=== PATIENT | female | born 2000 | race African-American/Black ===

== ENCOUNTER 2020-09-17 12:37 | Emergency (ER) | payer MEDICAID ==
[~2020-09-17] VITALS: Ht 162.6 cm; Wt 45.4 kg
[2020-09-17 16:45] VITALS: BP 101/56
== END 2020-09-17 18:40 | disposition left against medical advice (07) ==
LOC: ER 12:37
DX: R11.2 Nausea with vomiting, unspecified (principal); F41.9 Anxiety disorder, unspecified; Z53.21 Procedure and treatment not carried out due to patient leaving prior to being seen by health care provider
CPT/HCPCS: 71046

== ENCOUNTER → 2021-04-05 | Emergency (ER) | payer MEDICAID ==
[~2021-04-05] VITALS: Ht 165.1 cm; Wt 49.9 kg
[2021-04-05 09:20] VITALS: BP 113/99
== END | disposition home or self-care (01) ==
LOC: EDUNIT# 09:07 → ER 09:08 → EDBD 09:08
DX: M79.18 Myalgia, other site (principal)

== ENCOUNTER 2021-10-29 23:46 | Emergency (ER) | payer MEDICAID ==
[~2021-10-29] VITALS: Ht 160 cm; Wt 44.5 kg
[2021-10-30 00:14] VITALS: BP 99/62
[2021-10-30 01:29] LABS: Urine Bacteria NONE SEEN /hpf (None Seen); Urine Blood Negative /uL (Negative); Urine Mucus FEW (None Seen); Urine Specific Gravity 1.031 (1.001-1.035); Urine WBC 5 /hpf (0 - 5)
== END 2021-10-30 03:19 | disposition left against medical advice (07) ==
LOC: ER 23:46
DX: R07.89 Other chest pain (principal); R11.0 Nausea; Z53.21 Procedure and treatment not carried out due to patient leaving prior to being seen by health care provider
CPT/HCPCS: 81001; 81025; 93005

== ENCOUNTER 2022-01-01 22:59 | Emergency (ER) | payer MEDICAID ==
[~2022-01-01] VITALS: Ht 165.1 cm; Wt 50.3 kg
[2022-01-01 22:59] VITALS: BP 112/67
== END 2022-01-02 03:46 | disposition home or self-care (01) ==
LOC: ER 23:13
DX: H92.02 Otalgia, left ear (principal)

== ENCOUNTER 2022-04-30 12:18 | Observation (INO) | payer MEDICAID ==
[~2022-04-30] VITALS: Ht 170.2 cm; Wt 72.7 kg
[2022-04-30 12:25] VITALS: BP 110/77
== END 2022-04-30 15:10 | disposition home or self-care (01) ==
LOC: EDBD 12:18 → ER 12:18 → UNDOADMOB 12:46 → LDRP 12:46 → UNDODISOB 15:10
PROVIDERS: ADMIT Obstetrics & Gynecology; ATTEND Obstetrics & Gynecology
DX: O36.8130 Decreased fetal movements, third trimester, not applicable or unspecified (principal); O36.5930 Maternal care for other known or suspected poor fetal growth, third trimester, not applicable or unspecified; Z3A.34 34 weeks gestation of pregnancy
CPT/HCPCS: 59025; 76818; 81002; 94760; 99284; G0378

== ENCOUNTER 2022-12-17 15:07 | Emergency (ER) | payer MEDICAID ==
[~2022-12-17] VITALS: Ht 165.1 cm; Wt 45.4 kg
[2022-12-17 15:55] VITALS: BP 116/63; PULSE 83; RESP 16; TEMP 98.8; O2SAT 96
[2022-12-17] MEDS ORDERED: NAPR-746 PO (16:01)
[2022-12-17] MEDS ORDERED: TRIA0.02 TOP (16:01)
== END 2022-12-17 16:10 | disposition home or self-care (01) ==
LOC: ER 15:07
DX: S70.02XA Contusion of left hip, initial encounter (principal); L20.9 Atopic dermatitis, unspecified; W01.0XXA Fall on same level from slipping, tripping and stumbling without subsequent striking against object, initial encounter; Y93.89 Activity, other specified; Y92.89 Other specified places as the place of occurrence of the external cause; Y99.8 Other external cause status

== ENCOUNTER 2024-10-20 15:35 | Emergency (ER) | payer MEDICAID ==
[~2024-10-20] VITALS: Ht 165.1 cm; Wt 46.0 kg
[~2024-10-20 15:35] MED LIST: NAPR-746 PO; TRIA0.02 TOP
[2024-10-20 15:44] VITALS: BP 110/66; PULSE 91; RESP 17; TEMP 97.9; O2SAT 98
--- NOTE | 2024-10-20 15:46 | ED.PDOC ---
History of Present Illness(SKN HPI Comments A 24 YEAR OLD FEMALE PRESENTS TO THE ED WITH COMPLAINT OF VAGINAL RASH. PATIENT STATES SHE HAS HAD A SKIN TAG ON HER VAGINAL/PELVIC REGION FOR THE PAST 1 MONTH. PATIENT DENIES VAGINAL DISCHARGE, DYSURIA, HEMATURIA, FEVER, CHILLS, SHORTNESS OF BREATH, CHEST PAIN, ABDOMINAL PAIN, NAUSEA, VOMITING, HEADACHE, OR OTHER COMPLAINTS. NO OTHER SYMPTOMS OR MODIFYING FACTORS AT THIS TIME. PATIENT IS ALERT, ORIENTED X 4, AND HAS STEADY GAIT. Chief Complaint: Rash Time Seen by MD: 15:37 Primary Care Provider: [facility] History of Present Illness: Nurses Notes, Medications, Allergies Allergies: Coded Allergies: NO KNOWN ALLERGIES (Unverified , 07/05/14) Home Meds Active Scripts Naproxen (Naproxen) 500 Mg Tab, 500 MG PO BID, #30 TAB Prov:CANDY RAMAN 12/17/22 Triamcinolone Acetonide (Triamcinolone Acetonide) 0.025 % Cre, 1 APPLIC TOP BID, #30 GRAMS Prov:CANDY RAMAN 12/17/22 Information Source: Patient Mode of Arrival: Ambulatory Severity: Mild Timing: Weeks Duration: Since onset Prehospital treatment: None Location: Pelvis (VAGINAL REGION) Mechanism: Spontaneous Onset Developed: Other (SKIN TAG OF VAGINAL REGION) Occurence: Indoors Object: None Condition of Object: None Retained Foreign Body: No Wound Type: None Immunization Status of Animal: NA Tetanus: Unknown History of: None Associated Signs and Symptoms: Redness Past Medical History PAST MEDICAL HISTORY: Denies Surgical History: Denies all surgeries PRODUCTION SUPPORT CONSULTANT History: Denies all PRODUCTION SUPPORT CONSULTANT Hx Family History Family History: Reviewed,noncontributory to illness Social History Smoker: Non-Smoker Alcohol: Denies ETOH Use Drugs: Denies Drug Use Lives In: Home Constitutional: denies: chills, diaphoresis, fatigue, fever, malaise, sweats, weakness, others EENTM: denies: blurred vision, double vision, ear bleeding, ear discharge, ear drainage, ear pain, ear ringing, eye pain, eye redness, hearing loss, mouth pain, mouth swelling, nasal discharge, nose bleeding, nose congestion, nose pain, photophobia, tearing, throat pain, throat swelling, voice changes, others Respiratory: denies: cough, hemoptysis, orthopnea, SOB at rest, shortness of breath, SOB with excertion, stridor, wheezing, others Cardiovascular: denies: chest pain, dizzy spells, diaphoresis, Dyspnea on exertion, edema, irregular heart beat, left arm pain, lightheadedness, palpitations, PND, syncope, others Gastrointestinal: denies: abdomen distended, abdominal pain, blood streaked bowels, constipated, diarrhea, dysphagia, difficulty swallowing, hematemesis, melena, nausea, poor appetite, poor fluid intake, rectal bleeding, rectal pain, vomiting, others Genitourinary: denies: abnormal vagina bleeding, burning, dyspareunia, dysuria, flank pain, frequency, hematuria, incontinence, pain, , vagina discharge, urgency, others Neurological: denies: dizziness, fainting, headache, left sided numbness, left sided weakness, numbness, paresthesia, pre-existing deficit, right sided numbness, right sided weakness, seizure, speech problems, tingling, tremors, weakness, others Musculoskeletal: denies: back pain, gout, joint pain, joint swelling, muscle pain, muscle stiffness, neck pain, others Integumetry: reports: others (SKIN TAG OF VAGINAL REGION); denies: bruises, change in color, change in hair/nails, dryness, laceration, lesions, lumps, rash, wounds Allergic/Immunocompromised: denies: Difficulty Healing, Frequent Infections, Hives, Itching, others Hematologic/Lymphatic: denies: anemia, blood clots, easy bleeding, easy bruising, swollen glands, others Endocrine: denies: excessive hunger, excessive sweating, excessive thirst, excessive urination, flushing, intolerance to cold, intolerance to heat, unexplained weight gain, unexplained weight loss, others Psychiatric: denies: anxiety, bipolar disorder, depression, hopeless, panic disorder, schizophrenia, sleepless, suicidal, others All Other Systems: Reviewed and Negative Physical Exam General Appearance: No Apparent Distress, Normal HEENT: Normal ENT Inspection, PERRL/EOMI, Pharynx Normal, TMs Normal Neck: Full Range of Motion, Non-Tender, Normal, Normal Inspection Respiratory: Chest Non-Tender, Lungs Clear, No Accessory Muscle Use, No Respiratory Distress, Normal Breath Sounds Cardiovascular: No Edema, No JVD, No Murmur, No Gallop, Normal Peripheral Pulses, Regular Rate/Rhythm Breast Exam: Deferred Gastrointestinal: No Organomegaly, Non Tender, No Pulsatile Mass, Normal Bowel Sounds, Soft Genitalia: Other (A FEW SMALL SKIN TAGES ON ANTERIOR UPPER BUTTOCKS, NO TENDERNESS AND SWELLING, NO VAGINAL DISCHARGE AND BLEEDING. ) Pelvic: Normal External Exam Rectal: Deferred Extremities: No calf tenderness, Normal capillary refill, Normal inspection, Normal range of motion, Non-tender, No pedal edema Musculoskeletal : Apperance: Normal Neurologic: Alert, gang knife fish chopper II-XII nml as Tested, No Motor Deficits, Normal Affect, Normal Mood, No Sensory Deficits Cerebellar Function: Normal Reflexes: Normal Skin: Dry, Normal Color, Warm, Other (A FEW TINY SKIN TAGS ON BILATERAL ANTERIOR UPPER BUTTOCKS. ) Peripheral Pulses: 2+ carotid (R), 2+ carotid (L) Lymphatic: No Adenopathy Was a procedure done? Was a procedure done?: No Differential Diagnosis (INTG) Differential Diagnosis: N/A Differential Diagnosis: Atopic dermatitis, Contact Dermatitis, Herpes Zoster/Simplex, Tinea, Urticaria, Other (SKIN TAG) Differential Diagnosis: N/A Abscess: N/A Differential Diagnosis: N/A X-Ray, Labs, Meds, VS Vital Signs Date Time Temp Pulse Resp B/P (MAP) Pulse Ox O2 Delivery O2 Flow Rate FiO2 10/20/24 15:44 97.9 91 17 110/66 (81) 98 97.9 X-Ray, Labs, Meds, VS Comment EXTERNAL MEDICAL RECORDS REVIEWED: [NONE] INDEPENDENT HISTORIANS: [NONE] SOCIAL DETERMINANTS OF HEALTH: [NONE] LABS ORDERED: NONE REVIEWED AND INTERPRETED RESULTS: NONE IMAGING ORDERED: NONE TREATMENTS ORDERED: NONE PROCEDURES PERFORMED: NONE CRITICAL CARE TIME: NONE I HAVE DISCUSSED THE PATIENT WITH THE ATTENDING PHYSICIAN DR. TOUSSAINT AND HE AGREES WITH THE PATIENT'S PLAN OF CARE AND DISPOSITION. BASED ON HISTORY OF PRESENT ILLNESS, AND PHYSICAL EXAM, PATIENT WILL BE DISCHARGED HOME. SHARED DECISION MAKING: PATIENT INSTRUCTED TO FOLLOW UP WITH PRIMARY CARE PROVIDER IN 1-2 DAYS FOR RE-EVALUATION OF SYMPTOMS. PATIENT VERBALIZES UNDERSTANDING TO RETURN TO ED FOR NEW OR WORSENING SYMPTOMS OR IF FOLLOW UP WITH PCP CANNOT BE OBTAINED. PATIENT FEELS COMFORTABLE GOING HOME AT THIS TIME. ALL QUESTIONS ADDRESSED AT TIME OF DISCHARGE. Time of 1ST Reevaluation: 16:32 Reevaluation 1ST: Improved Patient Education/Counseling: Diagnosis, Treatment, Need For Follow Up Family Education/Counseling: Diagnosis, Treatment, Need For Follow Up Medical Screening: No EMC Exist At This Time SEPSIS Sepsis Screen Vital Signs Date Time Temp Pulse Resp B/P (MAP) Pulse Ox O2 Delivery O2 Flow Rate FiO2 10/20/24 15:44 97.9 91 17 110/66 (81) 98 97.9 Departure 1 Departure Time of Disposition: 16:32 Impression: Primary Impression: Skin tag Disposition: HOME / SELF CARE / HOMELESS Condition: Stable Additional Instructions: FOLLOW-UP WITH PCP IN 1 TO 2 DAYS. RETURN TO ED FOR ANY NEW OR WORSENING SYMPTOMS. Discharged With: Self Critical Care Note Critical Care Time?: No Stability Stability form required: No I personally scribed for CANDY RAMAN ([email or web address]) on 10/20/24 at 15:46. Electronically submitted by Jatin Narayan ([employer] ([employer])). I personally scribed for CANDY RAMAN ([email or web address]) on 10/20/24 at 16:19. Electronically submitted by Jatin Narayan ([employer] Content Database (RCDb)). I personally scribed for CANDY RAMAN ([email or web address]) on 10/20/24 at 16:22. Electronically submitted by Jatin Narayan ([email or web address]). CANDY RAMAN Oct 20, 2024 15:46
== END 2024-10-20 16:27 | disposition home or self-care (01) ==
LOC: ER 15:35
DX: L91.8 Other hypertrophic disorders of the skin (principal)

== ENCOUNTER 2025-01-12 10:42 | Emergency (ER) | payer MEDICAID ==
[~2025-01-12] VITALS: Ht 165.1 cm; Wt 46.9 kg
--- NOTE | 2025-01-12 11:25 | ED.PDOC ---
History of Present Illness(SKN HPI Comments A 24 YEAR OLD FEMALE PRESENTS TO THE ED WITH LEFT SIDED BREAST PAIN OF ONE MONTH DURATION. PAIN WAS INITIALLY INTERMITTENT BUT HAS BEEN CONSTANT FOR THE PAST TWO DAYS. IT IS ASSOCIATED WITH A NEWLY NOTICED LUMP IN THE INNER BREAST THAT APPEARED YESTERDAY, SUBSEQUENTLY RESOLVED, AND RECURRED TODAY. PATIENT HAS PAIN ON PALPATION. THERE IS NO PUS OR DRAINAGE FROM NIPPLE AREA. PATIENT MENTIONS SHE IS CURRENTLY BREAST FEEDING. PATIENT DENIES FEVER, CHILLS, SHORTNESS OF BREATH, CHEST PAIN, ABDOMINAL PAIN, NAUSEA, VOMITING, HEADACHE, OR OTHER COMPLAINTS. NO OTHER SYMPTOMS OR MODIFYING FACTORS AT THIS TIME. PATIENT IS ALERT, ORIENTED X 4, AND HAS STEADY GAIT. Chief Complaint: Breast pain Time Seen by MD: 11:20 Primary Care Provider: [facility] History of Present Illness: Nurses Notes, Medications, Allergies Allergies: Coded Allergies: NO KNOWN ALLERGIES (Unverified , 07/05/14) Home Meds Active Scripts Naproxen (Naproxen) 500 Mg Tab, 500 MG PO BID, #30 TAB Prov:CANDY RAMAN 12/17/22 Triamcinolone Acetonide (Triamcinolone Acetonide) 0.025 % Cre, 1 APPLIC TOP BID, #30 GRAMS Prov:CANDY RAMAN 12/17/22 Information Source: Patient Mode of Arrival: Ambulatory Severity: Mild, Moderate Timing: Days, Months Duration: Since onset, Days Prehospital treatment: None Location: Other (LEFT INNER BREAST ) Mechanism: Spontaneous Onset Object: None Condition of Object: None Wound Type: None Tetanus: UTD History of: None Associated Signs and Symptoms: Redness, Swelling (LEFT BREAST ), Pain (LEFT BREAST ) Past Medical History PAST MEDICAL HISTORY: Denies Surgical History: Denies all surgeries CHIP FRIER History: Denies all CHIP FRIER Hx Family History Family History: Reviewed,noncontributory to illness Social History Smoker: Non-Smoker Alcohol: Denies ETOH Use Drugs: Denies Drug Use Lives In: Home Constitutional: denies: chills, diaphoresis, fatigue, fever, malaise, sweats, weakness, others EENTM: denies: blurred vision, double vision, ear bleeding, ear discharge, ear drainage, ear pain, ear ringing, eye pain, eye redness, hearing loss, mouth pain, mouth swelling, nasal discharge, nose bleeding, nose congestion, nose pain, photophobia, tearing, throat pain, throat swelling, voice changes, others Respiratory: denies: cough, hemoptysis, orthopnea, SOB at rest, shortness of breath, SOB with excertion, stridor, wheezing, others Cardiovascular: denies: chest pain, dizzy spells, diaphoresis, Dyspnea on exertion, edema, irregular heart beat, left arm pain, lightheadedness, palpitat ions, PND, syncope, others Gastrointestinal: denies: abdomen distended, abdominal pain, blood streaked bow els, constipated, diarrhea, dysphagia, difficulty swallowing, hematemesis, melena, nausea, poor appetite, poor fluid intake, rectal bleeding, rectal pain, vomiting, others Genitourinary: denies: abnormal vagina bleeding, burning, dyspareunia, dysuria, flank pain, frequency, hematuria, incontinence, pain, , vagina discharge, urgency, others Neurological: denies: dizziness, fainting, headache, left sided numbness, left sided weakness, numbness, paresthesia, pre-existing deficit, right sided numbness, right sided weakness, seizure, speech problems, tingling, tremors, weakness, others Musculoskeletal: denies: back pain, gout, joint pain, joint swelling, muscle pain, muscle stiffness, neck pain, others Integumetry: reports: lumps (LEFT INNER BREAST ), others (LEFT BREAST SWELLING WITH PAIN ); denies: bruises, change in color, change in hair/nails, dryness, laceration, lesions, rash, wounds Allergic/Immunocompromised: denies: Difficulty Healing, Frequent Infections, Hives, Itching, others Hematologic/Lymphatic: denies: anemia, blood clots, easy bleeding, easy bruising, swollen glands, others Endocrine: denies: excessive hunger, excessive sweating, excessive thirst, excessive urination, flushing, intolerance to cold, intolerance to heat, unexplained weight gain, unexplained weight loss, others Psychiatric: denies: anxiety, bipolar disorder, depression, hopeless, panic disorder, schizophrenia, sleepless, suicidal, others All Other Systems: Reviewed and Negative Physical Exam General Appearance: No Apparent Distress, Normal HEENT: Normal ENT Inspection, PERRL/EOMI, Pharynx Normal, TMs Normal Neck: Full Range of Motion, Non-Tender, Normal, Normal Inspection Respiratory: Chest Non-Tender, Lungs Clear, No Accessory Muscle Use, No Respiratory Distress, Normal Breath Sounds Cardiovascular: No Edema, No JVD, No Murmur, No Gallop, Normal Peripheral Pulses, Regular Rate/Rhythm Breast Exam: (L) Tenderness (WITH LOCALIZED RED LUMP ON LEFT MIDDLE BREAST WALL, MASTITIS?? ) Gastrointestinal: No Organomegaly, Non Tender, No Pulsatile Mass, Normal Bowel Sounds, Soft Genitalia: Deferred Pelvic: Deferred Rectal: Deferred Extremities: No calf tenderness, Normal capillary refill, Normal inspection, Normal range of motion, Non-tender, No pedal edema Musculoskeletal : Apperance: Normal Neurologic: Alert, digital music instructor II-XII nml as Tested, No Motor Deficits, Normal Affect, Normal Mood, No Sensory Deficits Cerebellar Function: Normal Reflexes: Normal Skin: Dry, Normal Color, Warm, Other (A LUMP WITH MILD LOCALIZED REDNESS AND HARDNESS ON LEFT INNER MIDDLE BREAST WALL, NO OLPEN WOUND SEEN. ) Peripheral Pulses: 2+ carotid (R), 2+ carotid (L) Lymphatic: No Adenopathy Was a procedure done? Was a procedure done?: No Differential Diagnosis (INTG) Differential Diagnosis: Other ( FIBROCYSTIC BREAST CHANGES, BREAST CYST, AND FIBROADENOMA, MASTITIS ) X-Ray, Labs, Meds, VS Vital Signs Date Time Temp Pulse Resp B/P (MAP) Pulse Ox O2 Delivery O2 Flow Rate FiO2 01/12/25 11:44 68 18 97 Room Air 01/12/25 11:44 98.7 68 18 115/76 (89) 97 98.7 01/12/25 10:46 97.9 109 16 108/73 98 97.9 PATIENT: DEMAR MONSIVAISACCT: [id number]: [id number] : 2000 LOC: ER ROOM / BED: / AGE / SEX: 24 / F ADM STATUS: REG ER SERVICE 1122 ORDERING PHYSICIAN: CANDY RAMAN PROCEDURE(s): LBRST - L BREAST ULTRASOUND REASON: A LUMP ON LEFT INNER BREAST WITH PAIN AND MILD REDNESS ORDER NUMBER(s): [id number], ACCESSION NUMBER(s): [id number] US OF THE RIGHT BREAST INDICATION: A LUMP ON LEFT INNER BREAST WITH PAIN AND MILD REDNESS TECHNIQUE: Targeted left breast were evaluated with ultrasound COMPARISON: None FINDINGS: No solid or suspicious masses. No areas of architectural distortion. No malignant adenopathy. No dominant cysts are present. Heterogeneous and edematous appearance of the soft-tissue in the 9 o'clock position. IMPRESSION: There is no sonographic evidence for malignancy. Soft-tissue edema is present in the region of interest of the 9 o'clock position ; possibly cellulitis / mastitis. No drainable fluid collection or abscess. Recommend repeat ultrasound after treatment to ensure complete resolution. ACR Bi Rads Category:Category 2 ATED BY: MARKOS BARNES MD DICTATED DATE/TIME: 01/12/251456 SIGNED BY: MARKOS BARNES MD SIGNED DATE/TIME: 01/12/251456 CC: X-Ray, Labs, Meds, VS Comment EXTERNAL MEDICAL RECORDS REVIEWED: [NONE] INDEPENDENT HISTORIANS: [NONE] SOCIAL DETERMINANTS OF HEALTH: [NONE] LABS ORDERED: NONE REVIEWED AND INTERPRETED RESULTS: NONE IMAGING ORDERED: US OF THE BREAST (L) TREATMENTS ORDERED: NO PROCEDURES PERFORMED: NONE CRITICAL CARE TIME: NONE I HAVE DISCUSSED THE PATIENT WITH THE ATTENDING PHYSICIAN, DR. TOUSSAINT, HE AGREES WITH THE PATIENT'S PLAN OF CARE AND DISPOSITION. BASED ON HISTORY OF PRESENT ILLNESS, AND PHYSICAL EXAM, PATIENT WILL BE DISCH ARGED HOME. DISCUSSED PLAN FOR DISCHARGE HOME WITH RX [NAPROXEN AND KEFLEX ]. MEDICATION WARNINGS GIVEN. SHARED DECISION MAKING: DISCUSSED WITH PATIENT THAT THEIR WORKUP WAS NORMAL. PATIENT INSTRUCTED TO FOLLOW UP WITH PRIMARY CARE PROVIDER IN 1-2 DAYS FOR RE- EVALUATION OF SYMPTOMS. PATIENT VERBALIZES UNDERSTANDING TO RETURN TO ED FOR NEW OR WORSENING SYMPTOMS OR IF FOLLOW UP WITH PCP CANNOT BE OBTAINED. PATIENT FEELS COMFORTABLE GOING HOME AT THIS TIME. ALL QUESTIONS ADDRESSED AT TIME OF DISCHARGE. Time of 1ST Reevaluation: 11:25 Reevaluation 1ST: Unchanged Time of 2ND Reevaluation: 15:37 Patient Education/Counseling: Diagnosis, Treatment, Need For Follow Up Family Education/Counseling: Diagnosis, Treatment, Need For Follow Up, No Family Present Medical Screening: No EMC Exist At This Time SEPSIS Sepsis Screen Date sepsis recognized/suspect: Jan 12, 2025 Time Sepsis recognized/suspect: 1048 Recent Procedure: No On Antibiotic Therapy: No Respiratory Rate >20: No Heart Rate >90: Yes Temp<36 C (96.8 F) or >38.3 C: No SBP <90 or MAP <65 mmHG: No New Acute Mental Status Change: No Is the patient on CPAP, BIPAP,: No Physician Orders L Breast Ultrasound (01/12/25 11:22) Vital Signs Date Time Temp Pulse Resp B/P (MAP) Pulse Ox O2 Delivery O2 Flow Rate FiO2 01/12/25 11:44 68 18 97 Room Air 01/12/25 11:44 98.7 68 18 115/76 (89) 97 98.7 01/12/25 10:46 97.9 109 16 108/73 98 97.9 Departure 1 Departure Time of Disposition: 15:34 Impression: Primary Impression: Acute mastitis of left breast Disposition: HOME / SELF CARE / HOMELESS Condition: Stable Additional Instructions: F/U PCP IN 2 DAYS RECHECK. IF CONDITION BECOME WORSE, RETURN TO ED [facility]. e-Prescriptions Cephalexin Monohydrate (Cephalexin) 500 Mg Cap 1 CAP PO TID, #30 CAP Prov: CANDY RAMAN 01/12/25 Naproxen (Naproxen) 500 Mg Tab 500 MG PO BID, #30 TAB Prov: CANDY RAMAN 01/12/25 Discharged With: Self Critical Care Note Critical Care Time?: No Stability Stability form required: No I personally scribed for CANDY RAMAN ([email or web address]) on 01/12/25 at 11:25. Electronically submitted by Ana Desai ([facility]). CANDY RAMAN Jan 12, 2025 11:25
[2025-01-12 11:44] VITALS: BP 115/76; PULSE 68; RESP 18; TEMP 98.7; O2SAT 97
--- NOTE | 2025-01-12 15:00 | DVH ---
US OF THE RIGHT BREAST INDICATION: A LUMP ON LEFT INNER BREAST WITH PAIN AND MILD REDNESS TECHNIQUE: Targeted left breast were evaluated with ultrasound COMPARISON: None FINDINGS: No solid or suspicious masses. No areas of architectural distortion. No malignant adenopathy. No dominant cysts are present. Heterogeneous and edematous appearance of the soft-tissue in the 9 o'clock position. IMPRESSION: There is no sonographic evidence for malignancy. Soft-tissue edema is present in the region of interest of the 9 o'clock position ; possibly celluliti s / mastitis. No drainable fluid collection or abscess. Recommend repeat ultrasound after treatment to ensure complete resolution. ACR Bi Rads Category:Category 2
[2025-01-12] MEDS ORDERED: CEPH500C PO (15:35)
== END 2025-01-12 13:00 | disposition home or self-care (01) ==
LOC: ER 10:42
DX: N61.0 Mastitis without abscess (principal)
CPT/HCPCS: 76642